=== PATIENT | female | born 1985 | race African-American/Black ===

== ENCOUNTER 2016-12-23 11:16 | Emergency (ER) | payer BC ==
--- NOTE | 2016-12-23 11:27 | PDOC ---
History of Present Illness - General History Source: Patient Exam Limitations: No Limitations - History of Present Illness Initial Comments: 12/23/16 11:49 31 y/o F (LMP: one week ago, ) presents to the ED with severe low abdominal pain today. Patient reports the pain is crampy and feels like she needs to have a BM or go into labor. She tried to use the bathroom and passed a small stool. She reports associated nausea. She took Advil with no relief. She also reports some minimal burning on urination, but no pain. She michelle fever, chills. She denies vomiting, diarrhea, constipation. Denies chest pain, SOB. <Rose Marie Quan - Last Filed: 12/23/16 11:49> <Carlos Vargas - Last Filed: 12/23/16 14:28> - General Chief Complaint: Pain Stated Complaint: ABD PAIN Time Seen by Provider: 12/23/16 11:26 Past History <Rose Marie Quan - Last Filed: 12/23/16 11:49> - Reproductive History (#): 3 Para: 1 Cervical CA: No Dysfunctional Uterine Bleeding: No Ectopic : No Endometrial CA: No Polycystic Ovaries: No Therapeutic (s) & number: Yes Tubal Ligation: No Spontaneous : 1 - Suicide/Smoking/Psychosocial Hx Smoking History: Never smoked Hx Alcohol Use: No Drug/Substance Use Hx: No <Carlos Vargas - Last Filed: 12/23/16 14:28> - Past Medical History Allergies/Adverse Reactions: Allergies Allergy/AdvReac Type Severity Reaction Status Date / Time No Known Allergies Allergy Verified 12/23/16 11:30 Home Medications: Ambulatory Orders Levofloxacin [Levaquin] 750 mg PO DAILY #10 tablet 12/23/16 Phenazopyridine HCl [Pyridium] 200 mg PO TID #9 tablet 12/23/16 Review of Systems - Review of Systems Able to Perform ROS?: Yes Comments:: 12/23/16 11:49 GENERAL/CONSTITUTIONAL: No fever or chills. No weakness. HEAD, EYES, EARS, NOSE AND THROAT: No change in vision. No ear pain or discharge. No sore throat. CARDIOVASCULAR: No chest pain or shortness of breath. RESPIRATORY: No cough, wheezing, or hemoptysis. GASTROINTESTINAL: (+) lower abdominal pain, nausea. No vomiting, diarrhea or constipation. GENITOURINARY: (+) burning on urination. No frequency. MUSCULOSKELETAL: No joint or muscle swelling or pain. No neck or back pain. SKIN: No rash NEUROLOGIC: No headache, vertigo, loss of consciousness, or change in strength/ sensation. ENDOCRINE: No increased thirst. No abnormal weight change. HEMATOLOGIC/LYMPHATIC: No anemia, easy bleeding, or history of blood clots. ALLERGIC/IMMUNOLOGIC: No hives or skin allergy. <Rose Marie Quan - Last Filed: 12/23/16 11:49> *Physical Exam - Vital Signs Last Vital Signs Temp Pulse Resp BP Pulse Ox 98.4 F 71 17 105/65 100 12/23/16 11:25 12/23/16 11:25 12/23/16 11:25 12/23/16 11:25 12/23/16 11:25 - Physical Exam Comments: 12/23/16 11:49 GENERAL: Awake, alert, and fully oriented, in no acute distress HEAD: No signs of trauma EYES: PERRLA, EOMI, sclera anicteric, conjunctiva clear ENT: Auricles normal inspection, hearing grossly normal, nares patent, oropharynx clear without exudates. Moist mucosa NECK: Normal ROM, supple, no lymphadenopathy, JVD, or masses LUNGS: Breath sounds equal, clear to auscultation bilaterally. No wheezes, and no crackles HEART: Regular rate and rhythm, normal S1 and S2, no murmurs, rubs or gallops ABDOMEN: Soft, nontender, normoactive bowel sounds. No guarding, no rebound. No masses EXTREMITIES: Normal range of motion, no edema. No clubbing or cyanosis. No cords, erythema, or tenderness NEUROLOGICAL: Cranial nerves II through XII grossly intact. Normal speech, normal gait SKIN: Warm, Dry, normal turgor, no rashes or lesions noted. <Rose Marie Quan - Last Filed: 12/23/16 11:49> ED Treatment Course - LABORATORY CBC & Chemistry Diagram: 12/23/16 11:57 12/23/16 11:57 <Carlos Vargas - Last Filed: 12/23/16 14:28> *DC/Admit/Observation/Transfer - Attestations Scribe Attestion: 12/23/16 11:50 Documentation prepared by Rose Marie Quan, acting as medical orderly for Carlos Vargas DO. <Rose Marie Quan - Last Filed: 12/23/16 11:49> - Discharge Dispostion Admit: No - Attestations Physician Attestion: 12/23/16 11:26 I, Dr. Carlos Vargas, attest that this document has been prepared under my direction and personally reviewed by me in its entirety. I further attest, that it accurately reflects all work, treatment, procedures and medical decision -making performed by me. <Carlos Vargas - Last Filed: 12/23/16 14:28> Diagnosis at time of Disposition: Bladder spasms UTI (urinary tract infection) Qualifiers: Urinary tract infection type: acute cystitis Hematuria presence: with hematuria Qualified Code(s): N30.01 - Acute cystitis with hematuria - Discharge Dispostion Disposition: HOME - Prescriptions Prescriptions: Levofloxacin [Levaquin] 750 mg PO DAILY #10 tablet Phenazopyridine HCl [Pyridium] 200 mg PO TID #9 tablet - Patient Instructions Printed Discharge Instructions: DI for Urinary Tract Infection (UTI) Additional Instructions: Deidre- You have a really bad bladder infection and, what you experienced earlier were bladder spasms. The pyridium will keep them from happening again. As far as checking your IUD, no imagaing test will tell us exactly where it is..... you must go to your icing maker and have a pelvic exam. Return to us if problems. Take the antibiotic for ten days and drink 5 twenty ounce bottles of water a day. Best- Dr. Carlos Vargas
[2016-12-23 11:31] VITALS: TEMP 98.4; BMI 38.9
[2016-12-23] MEDS ORDERED: KETOROLAC TROMETHAMINE 30 MG/1 ML VIAL IVPUSH ONE (11:50)
[2016-12-23] MEDS ORDERED: SODIUM CHLORIDE 1,000 ML IV STA ×2 (11:50→13:52)
[2016-12-23] MEDS ORDERED: ONDANSETRON 4 MG/2 ML VIAL IVPUSH ONE (11:50)
[2016-12-23] MEDS ORDERED: ONDANSETRON 4 MG/2 ML VIAL ONE (12:07)
[2016-12-23] MEDS ORDERED: KETOROLAC TROMETHAMINE 30 MG/1 ML VIAL ONE (12:07)
[2016-12-23 12:08] LABS: BASOPHIL 0.5 % (0-2.0); EOSINOPHIL 2.9 % (0-4.5); MCH 30.2 pg (25.7-33.7); MCHC 33.2 g/dl (32.0-36.0); MEAN CELL VOLUME 90.9 fl (80-96); MEAN PLT VOLUME 8.1 fl (7.5-11.1); NEUTROPHILS 72.6 % (42.8-82.8); PLATELET COUNT 272 K/MM3 (134-434); RDW 13.9 % (11.6-15.6); WHITE BLOOD COUNT 7.7 K/mm3 (4.0-10.0)
[2016-12-23 12:15] LABS: URINE APPEARANCE CLOUDY; URINE BILIRUBIN NEGATIVE (NEGATIVE); URINE BLOOD 2+ (NEGATIVE); URINE COLOR LTYELLOW; URINE GLUCOSE (UA) NEGATIVE (NEGATIVE); URINE KETONE NEGATIVE (NEGATIVE); URINE NITRITE NEGATIVE (NEGATIVE); URINE PROTEIN NEGATIVE (NEGATIVE); URINE UROBILINOGEN NEGATIVE mg/dL (0.2-1.0)
[2016-12-23 12:17] LABS: URINE LEUK ESTERASE 3+ (NEGATIVE)
[2016-12-23 12:21] LABS: URINE RBC 26 /hpf (0-3); URINE WBC 330 /hpf (3-5)
[2016-12-23 12:31] LABS: INR 1.04 (0.82-1.09); PROTHROMBIN TIME (PATIENT) 11.5 SEC (9.98-11.88)
[2016-12-23 12:43] LABS: ALBUMIN 3.4 g/dl (3.4-5.0); ALK PHOS 67 U/L (45-117); ANION GAP 5 (8-16); BILIRUBIN,TOTAL 0.3 mg/dL (0.2-1.0); CALCIUM 8.7 mg/dL (8.5-10.1); CO2 27 mmol/L (21-32); CREATININE 0.6 mg/dL (0.55-1.02); GLUCOSE,RANDOM 88 mg/dL (74-106); SGOT/AST 18 U/L (15-37); SGPT/ALT 24 U/L (12-78); TOT PROT 7.1 g/dl (6.4-8.2)
[2016-12-23 13:43] VITALS: BP 102/60; PULSE 73
[2016-12-23] MEDS ORDERED: cefTRIAXone 2 GM/100 ML BAG (PRE-DOCKED) IVPB ONE (13:51)
[2016-12-23] MEDS ORDERED: LEVOFLOXACIN 750 MG TABLET PO ONE (13:53)
[2016-12-23] MEDS ORDERED: LEVOFLOXACIN 750 MG IVPB 150 ML IVPB ONE (13:56)
[2016-12-23] MEDS ORDERED: CEFTRIAXONE 100 ML IVPB ONE (13:56)
[2016-12-23] MEDS ORDERED: LEVOFLOXACIN 500 MG TABLET (FP) ONE (14:34)
[2016-12-23] MEDS ORDERED: LEVOFLOXACIN 250 MG TABLET (FP) ONE (14:35)
== END 2016-12-23 14:44 | disposition home or self-care (01) ==
LOC: JER 11:16
PROC: 3E0337Z Introduction of Electrolytic and Water Balance Substance into Peripheral Vein, Percutaneous Approach (ICD-10-PCS; principal; 2016-12-23)
PROC: 3E03329 Introduction of Other Anti-infective into Peripheral Vein, Percutaneous Approach (ICD-10-PCS; 2016-12-23)
PROC: 3E0333Z Introduction of Anti-inflammatory into Peripheral Vein, Percutaneous Approach (ICD-10-PCS; 2016-12-23)
PROC: 3E033GC Introduction of Other Therapeutic Substance into Peripheral Vein, Percutaneous Approach (ICD-10-PCS; 2016-12-23)
DX: N30.01 Acute cystitis with hematuria (principal); N32.89 Other specified disorders of bladder
CPT/HCPCS: 36415; 80053; 81003; 81015; 83690; 84703; 85025; 85610; 96361; 96374; 96375; 99283-25

== ENCOUNTER 2021-09-22 19:38 | Emergency (ER) | payer OTHER ==
[2021-09-22 19:46] VITALS: BP 104/73; PULSE 113; TEMP 98.1; BMI 41.6
[2021-09-22] MEDS ORDERED: IBUPROFEN 600 MG TABLET (FP) PO ONE ×2 (20:24→20:33)
== END 2021-09-22 20:51 | disposition home or self-care (01) ==
LOC: JERFT 19:38
DX: K08.89 Other specified disorders of teeth and supporting structures (principal)
CPT/HCPCS: 99283-25

== ENCOUNTER 2023-02-28 14:44 | Emergency (ER) | payer OTHER ==
[2023-02-28 14:52] VITALS: BP 109/65; PULSE 97; RESP 16; TEMP 98.2; BMI 37.2
[2023-02-28] MEDS ORDERED: ACETAMINOPHEN 1000 MG/100 ML BAG IVPB ONE (15:15)
[2023-02-28] MEDS ORDERED: SODIUM CHLORIDE 0.9% 500 ML INFUS.BAG IV ONE (15:15)
[2023-02-28] MEDS ORDERED: ACETAMINOPHEN INJECTION 100 ML IVPB ONE (15:34)
[2023-02-28 15:41] LABS: BASO % 0.7 % (0-2.0); EOS % 5.1 % (0-4.5); HEMATOCRIT 36.4 % (32.4-45.2); HEMOGLOBIN 11.8 GM/dL (10.7-15.3); LYMPH % 30.3 % (8-40); MCH 29.5 pg (25.7-33.7); MCHC 32.5 g/dl (32.0-36.0); MEAN PLT VOLUME 8.1 fl (7.5-11.1); MONO % 8.1 % (3.8-10.2); NEUT % 55.8 % (42.8-82.8); PLATELET COUNT 300 10^3/uL (134-434); RDW 13.9 % (11.6-15.6); WHITE BLOOD COUNT 6.4 K/mm3 (4.0-10.0)
[2023-02-28 15:48] LABS: POTASSIUM 3.8 mmol/L (3.5-5.1)
[2023-02-28 15:50] LABS: BLOOD UREA NITROGEN 16.5 mg/dL (7-18); CALCIUM 8.7 mg/dL (8.5-10.1)
[2023-02-28 15:54] LABS: CREATININE 0.8 mg/dL (0.55-1.3)
== END 2023-02-28 17:35 | disposition home or self-care (01) ==
LOC: JER 14:44
PROC: 3E033NZ Introduction of Analgesics, Hypnotics, Sedatives into Peripheral Vein, Percutaneous Approach (ICD-10-PCS; principal; 2023-02-28)
DX: R51.9 Headache, unspecified (principal); J01.00 Acute maxillary sinusitis, unspecified; G43.901 Migraine, unspecified, not intractable, with status migrainosus
CPT/HCPCS: 36415; 80048; 84703; 85025; 99284-25